=== PATIENT | female | born 1975 | race Caucasian/White ===

== ENCOUNTER 2018-05-14 21:52 | Emergency (ER) | payer MEDICARE, MEDICAID ==
[~2018-05-14] VITALS: Ht 160 cm; Wt 69.0 kg
[2018-05-14] MEDS ORDERED: proCHLORperazine 10 MG/2 ml inj IM ONE (22:50)
[2018-05-14] MEDS ORDERED: diazepam 5mg tablet PO ONE (22:50)
[2018-05-14] MEDS ORDERED: ketorolac trometh inj. 60 MG/2 ML VIAL IM ONE (22:50)
[2018-05-15 01:04] VITALS: BP 96/61
== END 2018-05-15 01:58 | disposition left against medical advice (07) ==
LOC: ER 21:52
DX: R51 Headache (principal); Z53.21 Procedure and treatment not carried out due to patient leaving prior to being seen by health care provider
CPT/HCPCS: J0780; J1885

== ENCOUNTER 2019-07-01 10:39 | Emergency (ER) | payer MEDICARE, MEDICAID ==
[~2019-07-01] VITALS: Ht 160 cm; Wt 72.0 kg
[2019-07-01 10:42] VITALS: BP 131/70
[2019-07-01] MEDS ORDERED: BUPIVAcaine 0.5% W/EPI /PF 30ml vial IJ ONE (13:00)
[2019-07-01] MEDS ORDERED: AMOX-101 PO (13:06)
== END 2019-07-01 13:25 | disposition home or self-care (01) ==
LOC: ER 10:40
DX: K04.7 Periapical abscess without sinus (principal); K03.81 Cracked tooth; F31.9 Bipolar disorder, unspecified; F17.210 Nicotine dependence, cigarettes, uncomplicated; Z88.2 Allergy status to sulfonamides; Z88.8 Allergy status to other drugs, medicaments and biological substances; Z79.2 Long term (current) use of antibiotics
CPT/HCPCS: 64400; 99284

== ENCOUNTER 2019-12-19 09:59 | Emergency (ER) | payer MEDICARE, MEDICAID | END 2019-12-19 10:53 | disposition left against medical advice (07) | LOC: ER 09:59 | DX: G89.29 Other chronic pain (principal); Z53.21 Procedure and treatment not carried out due to patient leaving prior to being seen by health care provider ==